=== PATIENT | female | born 1995 | race American Indian/Alaskan Native ===

== ENCOUNTER → 2024-01-19 10:41 | Outpatient (CLI) | payer OTHER | END | disposition home or self-care (01) | LOC: PRENATAL 10:41 | PROVIDERS: ATTEND Obstetrics & Gynecology Maternal & Fetal Medicine | DX: O26.849 Uterine size-date discrepancy, unspecified trimester (principal); Z36.0 Encounter for antenatal screening for chromosomal anomalies; Z14.8 Genetic carrier of other disease; Z3A.15 15 weeks gestation of pregnancy ==

== ENCOUNTER 2024-04-19 21:43 | Outpatient (CLI) | payer OTHER ==
[~2024-04-19] VITALS: Ht 165.1 cm; Wt 70.8 kg
[2024-04-19] MEDS ORDERED: CEFAZOLIN SODIUM 1,000 MG VIAL ONE (21:44)
[2024-04-19] MEDS ORDERED: PRENATAL CAPLE1 EAC1 (21:46)
[2024-04-19] MEDS ORDERED: MORPHINE SULFATE 4 MG/ML VIAL IV PRN (22:15)
[2024-04-19] MEDS ORDERED: RINGERS SOLUTION,LACTATED 1,000 ML IV SCH (22:15)
[2024-04-19] MEDS ORDERED: CEFAZOLIN SODIUM 1,000 MG VIAL IV ONE (22:15)
[2024-04-19 22:19] LABS: HEMATOCRIT 32.3 % (36.0-45.00); HEMOGLOBIN 10.6 g/dL (12.0-15.00); MEAN CELL VOLUME 86.8 fL (80.00-100.00); MEAN CORPUSCULAR HEMOGLOBIN 28.4 pg (27.00-32.0); MEAN CORPUSCULAR HGB CONC 32.7 g/dl (32.0-36.0); PLATELET COUNT 274 K/uL (150-450); RED BLOOD COUNT 3.72 M/uL (4.00-6.00); RED CELL DISTRIBUTION WIDTH 13.6 % (11.5-14.5); URINE APPEARANCE Clear; URINE BILIRRUBIN Negative (NEGATIVE); URINE BLOOD Negative; URINE COLOR Yellow; URINE GLUCOSE Negative (NEGATIVE); URINE LEUKOCYTE Negative; URINE NITRATE Negative; URINE PROTEIN Negative (NEGATIVE)
[2024-04-19 22:23] LABS: URINE BACTERIA 13.8 uL (0.0-1933); URINE RBC 4.2 uL (0.0-20.8); URINE WBC 6.9 uL (0.0-23.2)
[2024-04-20] MEDS ORDERED: CEFAZOLIN SODIUM 1,000 MG VIAL IV SCH (02:00)
[2024-04-20] MEDS ORDERED: TERBUTALINE SULFATE 1 MG/ML AMPUL ONE (08:05)
[2024-04-20] MEDS ORDERED: TERBUTALINE SULFATE 1 MG/ML AMPUL SUBCUTANEO STA (08:24)
== END 2024-04-20 16:47 | disposition home or self-care (01) ==
LOC: OBS/DEL 21:43
PROVIDERS: ATTEND Obstetrics & Gynecology
DX: O26.893 Other specified pregnancy related conditions, third trimester (principal); O60.00 Preterm labor without delivery, unspecified trimester; M54.50 Low back pain, unspecified

== ENCOUNTER 2024-05-23 17:44 | Inpatient (IN) | payer OTHER ==
[~2024-05-23] VITALS: Ht 165.1 cm; Wt 75.3 kg
[~2024-05-23 17:44] MED LIST: PRENATAL CAPLE1 EAC1
[2024-05-23] MEDS ORDERED: TERBUTALINE SULFATE 1 MG/ML AMPUL ONE (18:19)
[2024-05-23 18:24] LABS: HEMATOCRIT 29.5 % (36.0-45.00); HEMOGLOBIN 9.7 g/dL (12.0-15.00); MEAN CELL VOLUME 86.1 fL (80.00-100.00); MEAN CORPUSCULAR HEMOGLOBIN 28.4 pg (27.00-32.0); PLATELET COUNT 240 K/uL (150-450); RED BLOOD COUNT 3.42 M/uL (4.00-6.00)
[2024-05-23 18:25] LABS: PH,URINE 6.5 (5.0-8.0); URINE BILIRRUBIN Negative (NEGATIVE); URINE BLOOD Negative; URINE COLOR Yellow; URINE GLUCOSE Negative (NEGATIVE); URINE KETONE Trace (NEGATIVE); URINE LEUKOCYTE Small; URINE NITRATE Negative; URINE PROTEIN Trace (NEGATIVE)
[2024-05-23 18:30] LABS: URINE BACTERIA 3549.2 uL (0.0-1933); URINE EPITHELIAL CELLS 74.8 uL (0.0-38.8); URINE RBC 2.1 uL (0.0-20.8); URINE WBC 103.1 uL (0.0-23.2)
[2024-05-23 18:56] LABS: URINE APPEARANCE TURBID
[2024-05-23] MEDS ORDERED: TERBUTALINE SULFATE 1 MG/ML AMPUL SUBCUTANEO NR (19:15)
[2024-05-23] MEDS ORDERED: RINGERS SOLUTION,LACTATED 1,000 ML IV SCH (19:15)
[2024-05-23] MEDS ORDERED: PRENATAL TABLE1 EAC4 PO (20:21)
[2024-05-23] MEDS ORDERED: SOD FERRIC GLUC COMPLX/SUCROSE 62.5 MG/5 ML AMPUL IV ONE ×2 (22:45→22:49)
[2024-05-24] MEDS ORDERED: CEFAZOLIN SODIUM 1,000 MG in 0.9 % SODIUM CHLORIDE 50 ML IV SCH (09:00)
[2024-05-24] MEDS ORDERED: SOD FERRIC GLUC COMPLX/SUCROSE 62.5 MG/5 ML AMPUL IV ONE (09:00)
[2024-05-24] MEDS ORDERED: BETAMETHASONE ACETATE,SOD PHOS 30 MG/5 ML ML IM SCH (17:21)
[2024-05-24] MEDS ORDERED: TERBUTALINE SULFATE 1 MG/ML AMPUL ONE (20:10)
[2024-05-24] MEDS ORDERED: TERBUTALINE SULFATE 1 MG/ML AMPUL SUBCUTANEO ONE (20:30)
[2024-05-24] MEDS ORDERED: PNV,CALCIUM 72/IRON/FOLIC ACID 1 TAB TABLET PO SCH (21:00)
[2024-05-25] MEDS ORDERED: CEFAZOLIN SODIUM 2,000 MG in DEXTROSE 5 % IN WATER 100 ML IV SCH (01:00)
[2024-05-25] MEDS ORDERED: NIFEDIPINE 30 MG TAB.SA.OSM PO SCH (09:00)
[2024-05-25] MEDS ORDERED: IRON/V.C/V.B12/FOLIC A/VIT. E 1 CAPL CAPLET PO SCH (21:00)
[2024-05-25] MEDS ORDERED: SOD FERRIC GLUC COMPLX/SUCROSE 125 MG in 0.9 % SODIUM CHLORIDE 100 ML IV SCH (21:00)
== END 2024-05-26 12:38 | disposition home or self-care (01) | DRG 833 ==
LOC: OBS/DEL 17:44 → LDR 05-24 17:54 → OB/GYN 05-24 17:54
PROVIDERS: ADMIT Obstetrics & Gynecology; ATTEND Obstetrics & Gynecology
PROC: 4A1HXCZ Monitoring of Products of Conception, Cardiac Rate, External Approach (ICD-10-PCS; principal; 2024-05-24)
DX: O60.00 Preterm labor without delivery, unspecified trimester (principal); O99.013 Anemia complicating pregnancy, third trimester; D50.8 Other iron deficiency anemias; Z3A.33 33 weeks gestation of pregnancy; Z20.822 Contact with and (suspected) exposure to COVID-19

== ENCOUNTER 2024-06-07 10:02 | Outpatient (CLI) | payer OTHER ==
[~2024-06-07 10:02] MED LIST changes: +PRENATAL TABLE1 EAC4 PO
== END 2024-06-07 10:03 | disposition home or self-care (01) ==
LOC: PRENATAL 10:02
PROVIDERS: ATTEND Obstetrics & Gynecology Maternal & Fetal Medicine
DX: O26.843 Uterine size-date discrepancy, third trimester (principal); O36.8130 Decreased fetal movements, third trimester, not applicable or unspecified; Z3A.35 35 weeks gestation of pregnancy

== ENCOUNTER 2024-07-03 06:39 | Inpatient (IN) | payer OTHER ==
[~2024-07-03] VITALS: Ht 162.6 cm; Wt 80.3 kg
[2024-07-03 06:36] VITALS: BP 138/92
[2024-07-03] MEDS ORDERED: RINGERS SOLUTION,LACTATED 1,000 ML IV SCH (06:45)
[2024-07-03] MEDS ORDERED: PRENATAL TABLE1 EAC1 PO (07:01)
[2024-07-03 07:14] LABS: HEMATOCRIT 31.7 % (36.0-45.00); HEMOGLOBIN 10.7 g/dL (12.0-15.00); MEAN CELL VOLUME 86.7 fL (80.00-100.00); MEAN CORPUSCULAR HEMOGLOBIN 29.3 pg (27.00-32.0); MEAN CORPUSCULAR HGB CONC 33.8 g/dl (32.0-36.0); PLATELET COUNT 221 K/uL (150-450); RED BLOOD COUNT 3.66 M/uL (4.00-6.00); RED CELL DISTRIBUTION WIDTH 16.2 % (11.5-14.5)
[2024-07-03 07:17] LABS: PH,URINE 5.5 (5.0-8.0); URINE APPEARANCE Clear; URINE BILIRRUBIN Negative (NEGATIVE); URINE BLOOD Negative; URINE COLOR Dark Yellow; URINE GLUCOSE Negative (NEGATIVE); URINE KETONE Trace (NEGATIVE); URINE LEUKOCYTE Trace; URINE NITRATE Negative; URINE PROTEIN Trace (NEGATIVE)
[2024-07-03 07:27] LABS: URINE BACTERIA 2788.1 uL (0.0-1933); URINE EPITHELIAL CELLS 47.3 uL (0.0-38.8); URINE RBC 37.5 uL (0.0-20.8); URINE WBC 82.1 uL (0.0-23.2)
[2024-07-03 07:39] LABS: URINE CAST 0.45 uL (0.0-1.40)
[2024-07-03 07:40] LABS: URINE CRYSTALS MODERATE /HPF
[2024-07-03 08:07] LABS: ALBUMIN 2.4 gm/dL (3.4-5.0); BILIRUBIN TOTAL 0.28 mg/dL (0.3-1.2); CALCIUM 9.3 mg/dL (8.5-10.1); CREATININE SERUM 0.48 mg/dL (0.55-1.02); GFR 156.33; GLOBULINA 3.8 G/DL (2.4-3.5); POTASSIUM 4.03 mEq/L (3.5-5.1); TOTAL PROTEIN 6.2 gm/dL (6.4-8.2)
[2024-07-03 08:10] VITALS: BP 123/77
[2024-07-03 08:17] LABS: INR 1.01; PARTIAL THROMBOPLASTIN TIME 25.8 SECONDS (22.0-34.0)
[2024-07-03] MEDS ORDERED: MISOPROSTOL 25 MCG/4 ML GEL.W.APPL VAG STA (09:48)
[2024-07-03 12:06] VITALS: BP 121/75; O2SAT 99
[2024-07-03] MEDS ORDERED: MISOPROSTOL 25 MCG/4 ML GEL.W.APPL VAG ONE (15:00)
[2024-07-03 15:29] VITALS: BP 118/78
[2024-07-03] MEDS ORDERED: AMPICILLIN SODIUM 2,000 MG VIAL IV ONE (15:45)
[2024-07-03] MEDS ORDERED: AMPICILLIN SODIUM 1,000 MG VIAL IV SCH (17:00)
[2024-07-03 19:15] VITALS: BP 128/82
[2024-07-03 23:54] VITALS: BP 124/76
[2024-07-04] VITALS (15 sets, daily range): BP systolic 110–153; BP diastolic 76–91; O2SAT 99
[2024-07-04] MEDS ORDERED: OXYTOCIN 500 ML IV SCH (08:15)
[2024-07-04] MEDS ORDERED: MORPHINE SULFATE 4 MG/ML CARTRIDGE IV ONE (08:45)
[2024-07-04] MEDS ORDERED: MORPHINE SULFATE 4 MG/ML CARTRIDGE IV STA (13:35)
[2024-07-04] MEDS ORDERED: IBUprofen 400 MG TABLET PO PRN (16:00)
[2024-07-04] MEDS ORDERED: OXYTOCIN 1,000 ML IV SCH (16:15)
[2024-07-04] MEDS ORDERED: CHLORHEXIDINE GLUCONATE 120 ML BOTTLE TOP SCH (16:15)
[2024-07-04] MEDS ORDERED: OXYTOCIN 10 UNITS/ML VIAL IM STA (16:15)
[2024-07-04] MEDS ORDERED: ERYTHROMYCIN BASE OPHT 1GM EACH TUBE OP ONE (16:30)
[2024-07-04 22:13] LABS: HEMATOCRIT 32.9 % (36.0-45.00); HEMOGLOBIN 10.8 g/dL (12.0-15.00); MEAN CELL VOLUME 86.9 fL (80.00-100.00); MEAN CORPUSCULAR HEMOGLOBIN 28.4 pg (27.00-32.0); MEAN CORPUSCULAR HGB CONC 32.7 g/dl (32.0-36.0); PLATELET COUNT 225 K/uL (150-450); RED BLOOD COUNT 3.79 M/uL (4.00-6.00); RED CELL DISTRIBUTION WIDTH 16.6 % (11.5-14.5)
[2024-07-05 00:37] VITALS: BP 134/83
[2024-07-05 05:25] VITALS: BP 128/83
[2024-07-05 08:34] VITALS: BP 120/87
[2024-07-05 13:40] VITALS: BP 122/76
[2024-07-05 16:00] VITALS: BP 118/80
[2024-07-06 00:22] VITALS: BP 114/69
[2024-07-06 09:08] VITALS: BP 126/85
== END 2024-07-06 14:45 | disposition home or self-care (01) | DRG 807 ==
LOC: LDR 06:39 → OB/GYN 07-04 15:44
PROVIDERS: ADMIT Obstetrics & Gynecology; ATTEND Obstetrics & Gynecology
PROC: 3E0P7VZ Introduction of Hormone into Female Reproductive, Via Natural or Artificial Opening (ICD-10-PCS; 2024-07-03)
PROC: 4A1HXCZ Monitoring of Products of Conception, Cardiac Rate, External Approach (ICD-10-PCS; 2024-07-03)
PROC: 10E0XZZ Delivery of Products of Conception, External Approach (ICD-10-PCS; principal; 2024-07-04)
PROC: 3E033VJ Introduction of Other Hormone into Peripheral Vein, Percutaneous Approach (ICD-10-PCS; 2024-07-04)
DX: O80 Encounter for full-term uncomplicated delivery (principal); Z37.0 Single live birth; Z3A.39 39 weeks gestation of pregnancy; Z20.822 Contact with and (suspected) exposure to COVID-19